=== PATIENT | female | born 1960 | race Caucasian/White ===

== ENCOUNTER 2017-02-05 19:54 | Emergency (ER) | payer BC ==
[2017-02-05 21:44] VITALS: BP 115/84
--- NOTE | 2017-02-05 21:55 | EDM.PDOC ---
ED HPI GENERAL MEDICAL PROBLEM - General Chief Complaint: Flank Pain Stated Complaint: FELL HURT L SIDE Time Seen by Provider: 02/05/17 20:27 Source of Information: Reports: Patient History Limitations: Reports: No Limitations - History of Present Illness INITIAL COMMENTS - FREE TEXT/NARRATIVE: 2 days ago this lady tripped over the dog at home. She fell against a chair. Initially she did well but she's having increasing pain in the left chest wall mostly in the left mid axillary and posterior axillary line to the lower ribs. It hurts to breathe and to move. She denies shortness of breath. 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, Musculoskeletal History: Reports: Arthritis Neurological History: Reports: None Psychiatric History: Reports: None Endocrine/Metabolic History: Reports: None Hematologic History: Reports: None Immunologic History: Reports: None Oncologic (Cancer) History: Reports: Basal Cell Carcinoma Dermatologic History: Reports: None - Infectious Disease History Infectious Disease History: Reports: Chicken Pox, Mumps - Past Surgical History Head Surgeries/Procedures: Reports: None HEENT Surgical History: Reports: None Cardiovascular Surgical History: Reports: None Respiratory Surgical History: Reports: None GI Surgical History: Reports: Colonoscopy Female Surgical History: Reports: Tubal Ligation Endocrine Surgical History: Reports: None Neurological Surgical History: Reports: None Musculoskeletal Surgical History: Reports: None Oncologic Surgical History: Reports: None Dermatological Surgical History: Reports: None Social & Family History - Tobacco Use Smoking Status *Q: Current Every Day Smoker Years of Tobacco use: 12 Packs/Tins Daily: 0.2 - Caffeine Use Caffeine Use: Reports: Coffee - Recreational Drug Use Recreational Drug Use: No ED ROS GENERAL - Review of Systems Review Of Systems: ROS reveals no pertinent complaints other than HPI. ED EXAM, UPPER BACK/NECK PAIN - Physical Exam Exam: See Below Exam Limited By: No Limitations General Appearance: Alert, WD/WN, Mild Distress Eye Exam: Bilateral Eye: Normal Inspection Neck Exam: Full Range of Motion Cardiovascular/Respiratory: Regular Rate, Rhythm, Normal Breath Sounds, Other ( There is moderate to severe point tenderness to the lower ribs in the left mid axillary line. No bruising. No crepitance.) GI/Abdominal: Normal Bowel Sounds, Soft, Non-Tender, Other (Nothing to suggest splenic injury) Course - Vital Signs Last Recorded V/S: Last Vital Signs Temp 36.7 C 02/05/17 21:43 Pulse 57 L 02/05/17 21:43 Resp 16 02/05/17 21:43 BP 115/84 02/05/17 21:43 Pulse Ox 98 02/05/17 21:43 - Orders/Labs/Meds Orders: Active Orders 24 hr Category Date Time Status Ribs 2V w Chest Lt [CR] Stat Exams 02/05/17 20:47 Taken - Radiology Interpretation Free Text/Narrative:: Single nondisplaced fracture of the distal left ninth rib. Lung miller normal Departure - Departure Time of Disposition: 21:54 Disposition: Home, Self-Care 01 Condition: Fair Clinical Impression: Rib fracture - Discharge Information Forms: ED Department Discharge Additional Instructions: Take Tylenol and or ibuprofen as needed for pain. A chest or rib binder may help. After about a week the broken ends of the rib will begin to ahuja together and that should decrease the pain. It will take a full 6 weeks for the rib to fully heal - My Orders Last 24 Hours: My Active Orders 02/05/17 20:47 Ribs 2V w Chest Lt [CR] Stat - Assessment/Plan Last 24 Hours: My Active Orders 02/05/17 20:47 Ribs 2V w Chest Lt [CR] Stat
--- NOTE | 2017-02-06 09:41 | CR ---
Ribs 2V w Chest Lt INDICATION: trauma FINDINGS: Heart size normal. Lungs are clear. No pneumothorax. Minimally displaced acute lateral lef t ninth rib fracture.
== END 2017-02-05 22:13 | disposition home or self-care (01) ==
LOC: JP.ED 19:54
DX: S22.32XA Fracture of one rib, left side, initial encounter for closed fracture (principal); E78.00 Pure hypercholesterolemia, unspecified; M19.90 Unspecified osteoarthritis, unspecified site; F17.210 Nicotine dependence, cigarettes, uncomplicated; Z85.828 Personal history of other malignant neoplasm of skin; Z98.51 Tubal ligation status; Y92.009 Unspecified place in unspecified non-institutional (private) residence as the place of occurrence of the external cause; W01.190A Fall on same level from slipping, tripping and stumbling with subsequent striking against furniture, initial encounter
CPT/HCPCS: 71101-26-LT; 71101-LT; 99284

== ENCOUNTER 2023-03-09 13:44 | Emergency (ER) | payer BC, MEDICARE, OTHER ==
[2023-03-09] MEDS ORDERED: Sodium Chloride 0.9% 1,000 ML IV ONE (15:11)
[2023-03-09] MEDS ORDERED: Sodium Chloride 0.9% 10 ML Syringe FLUSH PRN (15:11)
[2023-03-09] MEDS ORDERED: Alum Hydrox/Mag Hydrox/Simeth 15 ML, Lidocaine 2% 15 ML PO ONE ×2 (15:14)
[2023-03-09 15:24] LABS: BASOPHILS PERCENT AUTO 0.5 % (0.1-1.3); EOSINOPHILS ABSOLUTE AUTO 0.05 K/uL (0.00-0.40); EOSINOPHILS PERCENT AUTO 1.1 % (0.0-5.4); HEMATOCRIT 37.8 % (34.3-46.0); HEMOGLOBIN 13.2 g/dL (11.2-15.5); IMMATURE GRAN PERCENT AUTO 0.5 % (0.0-0.7); LYMPHOCYTES ABSOLUTE AUTO 0.79 K/uL (0.8-3.3); LYMPHOCYTES PERCENT AUTO 18.2 % (11.4-47.7); MEAN CORPUSCULAR HEMOGLOBIN 31.8 pg (31.6-35.5); MEAN CORPUSCULAR HGB CONC 34.9 g/dL (31.6-35.5); MEAN CORPUSCULAR VOLUME 91.1 fL (81.4-99.0); MONOCYTES ABSOLUTE AUTO 0.42 K/uL (0.20-0.90); MONOCYTES PERCENT AUTO 9.7 % (3.3-12.6); NEUTROPHILS ABSOLUTE AUTO 3.05 K/uL (1.0-7.6); PLATELET COUNT,PLT 227 K/uL (130-375); RED BLOOD CELL COUNT 4.15 M/uL (3.77-5.24); WHITE BLOOD CELL COUNT,WBC 4.4 K/uL (3.2-11.0)
[2023-03-09 15:28] LABS: BASOPHILS ABSOLUTE AUTO 0.02 K/uL (0.00-0.10); IMMATURE GRAN ABSOLUTE AUTO 0.02 K/uL (0.00-0.23)
[2023-03-09 15:48] LABS: A/G RATIO 1.3 (1.2-2.2); ALANINE AMINOTRANSFERASE,ALT 22 U/L (12-78); ALBUMIN 3.7 g/dL (3.4-5.0); ALKALINE PHOSPHATASE 64 U/L (46-116); ASPARTATE AMNIOTRANSFERASE,AST 17 U/L (15-37); BILIRUBIN TOTAL 0.4 mg/dL (0.2-1.0); BLOOD UREA NITROGEN,BUN 10 mg/dL (7-18); CALCIUM 8.7 mg/dL (8.5-10.1); CARBON DIOXIDE,CO2 26 mmol/L (21-32); CHLORIDE,CL 101 mmol/L (100-108); CREATININE 0.8 mg/dL (0.6-1.0); EST CRCL DRUG DOSING (CG) 63.09 mL/min; ESTIMATED GFR 82 mL/min (>60); GLUCOSE RANDOM 101 mg/dL (74-106); PROTEIN TOTAL,TP 6.5 g/dL (6.4-8.2); SODIUM,NA 134 mmol/L (140-148)
[2023-03-09 15:50] LABS: TROPONIN I HIGH SENSITIVITY < 4.0 pg/mL (<=60.3)
[2023-03-09] MEDS ORDERED: Ketorolac 30 MG/ML SDV IVPUSH ONE (17:08)
[2023-03-09 17:34] VITALS: BP 161/83; PULSE 55
== END 2023-03-09 17:58 | disposition home or self-care (01) ==
LOC: JP.ED 13:44
DX: R07.81 Pleurodynia (principal); F17.210 Nicotine dependence, cigarettes, uncomplicated
CPT/HCPCS: 36415; 71046; 76705; 80053; 83690; 84484; 85025; 86140; 96361; 96374; 99284; A9270; J1885; J3490; J7030; 99283